=== PATIENT | female | born 1980 | race Caucasian/White ===

== ENCOUNTER 2018-09-27 16:41 | Emergency (ER) | payer OTHER ==
[~2018-09-27] VITALS: Ht 162.6 cm; Wt 102.5 kg
[~2018-09-27 16:41] MED LIST: BIRTH CONTROL; CIPROFLOXACIN500 M1 PO; FIORICET 50-321 EACH PO; FLOMAX0.4 MG PO; FLOXIN OTI0.3 %/5 M1 OT; MACROBID 100 M100 M1 PO; MUCINEX600 MG PO; NOHOMEMEDICATIONS; PAXIL10 MG; PERCOCET 5-3251 EACH PO; PRED FORTE 1% EY5 M1 OP; PYRIDIUM200 MG PO; ROBAXIN 750 MG750 MG PO; SPIRONOLACTONE25 M1 GT; TORADOL 10 MG T10 MG PO; TUSSIONEX PENN473 ML PO; ZOFRAN4 MG PO; ZPAK PO
[2018-09-27] MEDS ORDERED: LISINOPRIL10 MG PO (16:56)
[2018-09-27] MEDS ORDERED: ORTHO MICRONO0.35 MG PO (16:57)
[2018-09-27 17:28] LABS: ABSOLUTE EOSINOPHILS 0.2 thou/uL (0.0-0.7); ABSOLUTE LYMPHOCYTES 3.2 thou/uL (0.8-5.3); ABSOLUTE MONOCYTES 0.6 thou/uL (0.0-1.2); ABSOLUTE NEUTROPHILS 6.7 thou/uL (1.6-8.1); BASOPHILS 0.4 %; EOSINOPHILS 1.9 %; HEMATOCRIT 38.3 % (37.0-47.0); LYMPHOCYTES 29.5 %; MCH 29.8 pg (26.0-34.0); MCV 87.7 fL (80.0-100.0); MONOCYTES 5.6 %; MPV 8.5 fl. (7.2-11.1); NUCLEATED RBCS 0 /100WBC; PLATELET COUNT* 286 thou/uL (150-400); POLYS 62.6 %; RBC 4.36 mil/uL (4.20-5.00); RDW-CV 13.7 % (10.5-14.5); WBC 10.7 thou/uL (4.0-11.0)
[2018-09-27 17:29] LABS: URINE BILIRUBIN NEGATIVE (Negative); URINE BLOOD 2+ (Negative); URINE CLARITY CLEAR; URINE COLOR YELLOW; URINE GLUCOSE-RANDOM NEGATIVE (Negative); URINE KETONES TRACE (Negative); URINE LEUKOCYTES NEGATIVE (Negative); URINE NITRITE NEGATIVE (Negative); URINE PROTEIN NEGATIVE (Negative); URINE SPECIFIC GRAVITY >= 1.030 (1.005-1.030); URINE UROBILINOGEN 0.2 E.U./dl (0.2-1.0)
[2018-09-27 17:32] LABS: CALCIUM 8.7 mg/dL (8.5-10.1); CREATININE 0.9 mg/dL (0.6-1.3); POTASSIUM 3.6 mmol/L (3.5-5.1)
[2018-09-27 17:36] LABS: ALBUMIN 3.5 g/dL (3.4-5.0); TOTAL BILIRUBIN 0.5 mg/dL (<0.1-1.0); TOTAL PROTEIN 7.1 g/dL (6.4-8.2)
[2018-09-27 17:36] LABS: BACTERIA 1-9 Few /HPF (None Seen); CASTS None Seen /LPF (None Seen); CRYSTALS None Seen /LPF (None Seen); MUCUS None Seen strn/LPF (None Seen); SQUAMOUS 0-3 Few /LPF (0-3); URINE RBC 3-10 Few /HPF (0-2); URINE WBC 0-5 Rare /HPF (0-5)
[2018-09-27] MEDS ORDERED: ONDANSETRON HCL4 M2 PO (19:06)
[2018-09-27] MEDS ORDERED: FLOMAX0.4 MG PO (19:06)
[2018-09-27] MEDS ORDERED: NABUMETONE 750750 M1 PO (19:06)
[2018-09-27] MEDS ORDERED: PERCOCET PO (19:06)
[2018-09-27 19:34] VITALS: BP 149/96
== END 2018-09-27 19:35 | disposition home or self-care (01) ==
LOC: M.ERS 16:41
PROVIDERS: Nurse Practitioner Family
DX: N20.1 Calculus of ureter (principal); K58.9 Irritable bowel syndrome, unspecified; Z87.442 Personal history of urinary calculi; Z98.890 Other specified postprocedural states; Z88.1 Allergy status to other antibiotic agents; Z88.0 Allergy status to penicillin; Z88.5 Allergy status to narcotic agent

== ENCOUNTER 2019-08-15 21:01 | Emergency (ER) | payer OTHER ==
[~2019-08-15] VITALS: Ht 162.6 cm; Wt 99.8 kg
[~2019-08-15 21:01] MED LIST changes: +LISINOPRIL10 MG PO; +NABUMETONE 750750 M1 PO; +ONDANSETRON HCL4 M2 PO; +ORTHO MICRONO0.35 MG PO; +PERCOCET PO
[2019-08-15] MEDS ORDERED: NORVASC5 MG PO (21:20)
[2019-08-15] MEDS ORDERED: METFORMIN HCL500 MG PO (21:21)
[2019-08-15] MEDS ORDERED: POTASSIUM CITRATE (21:22)
[2019-08-15 21:43] LABS: ABSOLUTE BASOPHILS 0.2 thou/uL (0.0-0.2); ABSOLUTE EOSINOPHILS 0.2 thou/uL (0.0-0.7); ABSOLUTE LYMPHOCYTES 3.6 thou/uL (0.8-5.3); ABSOLUTE MONOCYTES 0.7 thou/uL (0.0-1.2); ABSOLUTE NEUTROPHILS 7.6 thou/uL (1.6-8.1); BASOPHILS 1.3 %; EOSINOPHILS 1.5 %; HEMATOCRIT 37.3 % (37.0-47.0); HEMOGLOBIN 12.7 gm/dL (12.0-15.0); LYMPHOCYTES 29.4 %; MCHC 34.2 g/dL (28.0-37.0); MCV 87.6 fL (80.0-100.0); MONOCYTES 5.8 %; NUCLEATED RBCS 0 /100WBC; PLATELET COUNT* 262 thou/uL (150-400); RBC 4.25 mil/uL (4.20-5.00); RDW-CV 13.6 % (10.5-14.5); WBC 12.3 thou/uL (4.0-11.0)
[2019-08-15 21:56] LABS: CALCIUM 8.9 mg/dL (8.5-10.1); CREATININE 0.9 mg/dL (0.6-1.3); POTASSIUM 3.9 mmol/L (3.5-5.1)
[2019-08-15 22:18] LABS: URINE BILIRUBIN NEGATIVE (Negative); URINE BLOOD 3+ (Negative); URINE CLARITY CLEAR; URINE COLOR YELLOW; URINE GLUCOSE-RANDOM NEGATIVE (Negative); URINE KETONES NEGATIVE (Negative); URINE LEUKOCYTES-REFLEX NEGATIVE (Negative); URINE NITRITE-REFLEX NEGATIVE (Negative); URINE PROTEIN TRACE (Negative); URINE UROBILINOGEN 0.2 E.U./dl (0.2-1.0)
[2019-08-15 22:27] LABS: SQUAMOUS >10 Many /LPF (0-3)
[2019-08-15 22:28] LABS: BACTERIA-REFLEX 1-9 Few /HPF (None Seen); CASTS None Seen /LPF (None Seen); CRYSTALS None Seen /LPF (None Seen); MUCUS None Seen strn/LPF (None Seen); URINE RBC >20 Many /HPF (0-2); URINE WBC-REFLEX 0-5 Rare /HPF (0-5)
[2019-08-16] MEDS ORDERED: ZOFRAN ODT4 MG PO (00:34)
[2019-08-16] MEDS ORDERED: NORCO 7.5-3251 EACH PO (00:34)
[2019-08-16 00:44] VITALS: BP 130/80
== END 2019-08-16 00:44 | disposition home or self-care (01) ==
LOC: M.ERS 21:01
PROVIDERS: Emergency Medicine
DX: N20.0 Calculus of kidney (principal); R11.2 Nausea with vomiting, unspecified; Z98.890 Other specified postprocedural states; Z90.710 Acquired absence of both cervix and uterus; Z88.1 Allergy status to other antibiotic agents; Z88.0 Allergy status to penicillin; Z88.5 Allergy status to narcotic agent

== ENCOUNTER 2019-08-16 19:12 | Inpatient (IN) | payer OTHER ==
[~2019-08-16] VITALS: Ht 162.6 cm; Wt 99.8 kg
[~2019-08-16 19:12] MED LIST changes: +METFORMIN HCL500 MG PO; +NORCO 7.5-3251 EACH PO; +NORVASC5 MG PO; +POTASSIUM CITRATE PO; +ZOFRAN ODT4 MG PO
[2019-08-16 19:41] VITALS: BP 127/78
[2019-08-16 20:02] LABS: ABSOLUTE BASOPHILS 0.1 thou/uL (0.0-0.2); ABSOLUTE EOSINOPHILS 0.1 thou/uL (0.0-0.7); ABSOLUTE LYMPHOCYTES 1.6 thou/uL (0.8-5.3); ABSOLUTE MONOCYTES 0.8 thou/uL (0.0-1.2); ABSOLUTE NEUTROPHILS 9.9 thou/uL (1.6-8.1); BASOPHILS 0.5 %; EOSINOPHILS 0.4 %; HEMATOCRIT 38.5 % (37.0-47.0); HEMOGLOBIN 13.2 gm/dL (12.0-15.0); LYMPHOCYTES 12.9 %; MCH 30.4 pg (26.0-34.0); MCHC 34.2 g/dL (28.0-37.0); MCV 88.8 fL (80.0-100.0); MONOCYTES 6.6 %; MPV 8.4 fl. (7.2-11.1); NUCLEATED RBCS 0 /100WBC; PLATELET COUNT* 261 thou/uL (150-400); POLYS 79.6 %; RBC 4.34 mil/uL (4.20-5.00); RDW-CV 13.9 % (10.5-14.5); WBC 12.4 thou/uL (4.0-11.0)
[2019-08-16 20:16] LABS: CALCIUM 9.1 mg/dL (8.5-10.1); CREATININE 1.3 mg/dL (0.6-1.3); POTASSIUM 4.3 mmol/L (3.5-5.1)
[2019-08-16 20:21] LABS: ALBUMIN 3.6 g/dL (3.4-5.0); TOTAL BILIRUBIN 0.9 mg/dL (<0.1-1.0)
[2019-08-16 22:41] LABS: URINE BILIRUBIN NEGATIVE (Negative); URINE BLOOD 3+ (Negative); URINE CLARITY HAZY; URINE COLOR YELLOW; URINE GLUCOSE-RANDOM NEGATIVE (Negative); URINE KETONES 1+ (Negative); URINE LEUKOCYTES-REFLEX NEGATIVE (Negative); URINE NITRITE-REFLEX NEGATIVE (Negative); URINE PROTEIN TRACE (Negative); URINE SPECIFIC GRAVITY 1.025 (1.005-1.030); URINE UROBILINOGEN 0.2 E.U./dl (0.2-1.0)
[2019-08-16 22:48] LABS: BACTERIA-REFLEX >30 Many /HPF (None Seen); CASTS None Seen /LPF (None Seen); CRYSTALS None Seen /LPF (None Seen); MUCUS 4-6 Moderate strn/LPF (None Seen); SQUAMOUS >10 Many /LPF (0-3); URINE RBC >20 Many /HPF (0-2); URINE WBC-REFLEX 6-15 Few /HPF (0-5)
[2019-08-17 00:56] VITALS: BP 128/74
[2019-08-17 01:20] VITALS: BP 139/74
--- NOTE | 2019-08-17 06:10 | NUR ---
PATIENT ADMITTED TO ROOM 108 FROM THE ER AT APPROXIMATELY 0105. WITH PATIENT IN ROOM. PATIENTS VSS ON RA. PATIENT ORIENTED TO ROOM AND POLICIES. FALL EDUCATION GIVEN AND FALL AGREEMENT SIGNED. PAIN CONTROLLED AT THIS TIME D/T PAIN MEDICATIONS BEING GIVEN IN THE ER. NO C/O NAUSEA AT THIS TIME. IV IN RIGHT AC- NS @ 100ML/HR. IV ABT GIVEN WITHOUT ANY ADVERSE SIDE EFFECTS. ASSESSMENT CHARTED. PATIENT INSTRUCTED TO USE CALL LIGHT WHEN NEEDING ASSISTANCE. HOURLY ROUNDS MADE. WILL CONTINUE WITH PLAN OF CARE AND NURSING TO MONITOR.
[2019-08-17 07:35] VITALS: BP 108/70
[2019-08-17 09:44] LABS: CALCIUM 8.2 mg/dL (8.5-10.1); CREATININE 1.4 mg/dL (0.6-1.3); POTASSIUM 3.6 mmol/L (3.5-5.1)
[2019-08-17 16:00] VITALS: BP 132/76
--- NOTE | 2019-08-17 19:00 | NUR ---
SEE MAR. PATIENT HAVING PAIN CONTROL ISSUES THIS SHIFT. DENIED PAIN THIS MORNING, THEN STATES AFTER FIRST VOID, STARTED HAVING INCREASE IN PAIN. URINE STRAINED ORDERED THRU SHIFT. NO SPECIMEN SENT TO LAB. PATIENT AMB IN AND HALLS W/ FAMILY MEMBER PRESENT. GAIT NOTED STEADY. PATIENT STATES THAT AMBULATING HELPS W/ PAIN. WARM PACK GIVEN, PATIENT STATES THAT IT HELPED A LITTLE THIS AM. UROLOGY CONSULTED. IV SITE NOTED WNL. FLUIDS INFUSING W/O DIFF. CURRENTLY AMBULATING IN HALLS W/ PRESENT. HRLY ROUNDS DONE. ~TJRN
[2019-08-17 19:40] VITALS: BP 132/75
--- NOTE | 2019-08-18 03:31 | NUR ---
ASSUMED CARE OF PATIENT AT 1930. FIRST CONTACT AT 1939. MOTHER, [id number] AND AT BEDSIDE. MOTHER AND [id number] ARE SPEAKING FOR PATIENT. VERY DIRECT QUESTIONS TO PATIENT USING HER NAME BEFORE FAMILY WOULD ALLOW HER TO ANSWER. FAMILY VERY UPSET TO SEE HER CONTINUED SEVERE PAIN DESPITE Q2H PAIN MEDS PROVIDED. AFTER BRIEF ASSESSMENT DISCUSSED GETTING IN TOUCH WITH THE PHYSICIAN. THIS WAS COMPLETED AFTER LEAVING ROOM. PHYSICIAN TO ENTER CHANGES IN MEDITECH. THIS NURSE COMING UP THE [place] TO ANOTHER PATIENT ROOM WHEN MET PATIENT IN [place] AMBULATING WITH MOTHER AND . MOTHER AGAIN VERBALIZING DISTRESS WITH NOT GETTING PAIN RELIEF. REITERATED THAT PHYSICIAN WAS CALLED AND NEW ORDERS PENDING. 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 ATTEMPTED TO STATE IT HADN'T BEEN TIME FOR PHYSICIAN TO COMPLETE ORDER PROCESS, BUT, THIS NURSE DIDN'T CARE IF PATIENT WANTED TO LEAVE AMA. MOTHER TOOK THIS STATEMENT THAT THIS NURSE DIDN'T CARE ABOUT THE PAIN PATIENT WAS GOING THROUGH AND STATED BACK TO THIS NURSE "I KNOW YOU DON'T CARE." MOTHER LEFT SHORTLY THEREAFTER. CONTINUED HOURLY PAIN ASSESSMENTS WITH MEDS PROVIDED ORDERED. A SECOND CALL TO PHYSICIAN 2041 TO ADD ANOTHER LEVEL OF PAIN MANGEMENT. PATIENT HAS BEEN COOPERATIVE AND PAIN LEVELS BECOMING MORE TOLERABLE UTILIZING ORAL PERCOCET, LEVSIN, IV FENTANYL AND A B&O SUPPOSITORY. O2 SATS MID NINTIES. CONTINUE TO MONITOR.
[2019-08-18 03:54] LABS: HEMATOCRIT 31.7 % (37.0-47.0); MCH 30.5 pg (26.0-34.0); MCHC 34.2 g/dL (28.0-37.0); MCV 89.2 fL (80.0-100.0); MPV 8.9 fl. (7.2-11.1); RBC 3.56 mil/uL (4.20-5.00); WBC 12.1 thou/uL (4.0-11.0)
[2019-08-18 03:55] LABS: HEMOGLOBIN 10.8 gm/dL (12.0-15.0)
[2019-08-18 04:29] LABS: CALCIUM 8.6 mg/dL (8.5-10.1); CREATININE 1.3 mg/dL (0.6-1.3); POTASSIUM 4.3 mmol/L (3.5-5.1)
--- NOTE | 2019-08-18 05:23 | NUR ---
PATIENT HAS REMAINED ALERT AND ORIENTED X 4 THROUGHOUT. UP FREQUENTLY TO AMBULATE IN THE [place] WHEN PAIN HITS. VERY DIFFICULT PAIN MANAGEMENT. SEE PREVIOUS NURSING ENTRY. OVERALL SOME IMPROVEMENT SINCE PAST MIDNIGHT AND PATIENT DID GET A LITTLE BIT OF SLEEP. VITAL SIGNS STABLE ON ROOM AIR. NPO FOR POSSIBLE PROCEDURE. CONTINUE TO MONITOR.
[2019-08-18 07:50] VITALS: BP 110/63
[2019-08-18 10:59] LABS: URINE BILIRUBIN NEGATIVE (Negative); URINE BLOOD 2+ (Negative); URINE CLARITY CLEAR; URINE COLOR YELLOW; URINE GLUCOSE-RANDOM NEGATIVE (Negative); URINE KETONES NEGATIVE (Negative); URINE LEUKOCYTES NEGATIVE (Negative); URINE NITRITE NEGATIVE (Negative); URINE PROTEIN NEGATIVE (Negative); URINE SPECIFIC GRAVITY <= 1.005 (1.005-1.030); URINE UROBILINOGEN 0.2 E.U./dl (0.2-1.0)
[2019-08-18 11:08] LABS: SQUAMOUS >10 Many /LPF (0-3)
[2019-08-18 11:09] LABS: URINE RBC 3-10 Few /HPF (0-2); URINE WBC 0-5 Rare /HPF (0-5)
[2019-08-18 11:10] LABS: BACTERIA 1-9 Few /HPF (None Seen); CASTS None Seen /LPF (None Seen); MUCUS None Seen strn/LPF (None Seen)
[2019-08-18 11:11] LABS: CRYSTALS None Seen /LPF (None Seen)
[2019-08-18] MEDS ORDERED: CEFUROXIME250 MG PO (13:06)
[2019-08-18 13:34] VITALS: BP 110/63
[2019-08-18 13:38] VITALS: BP 110/63
[2019-08-18] MEDS ORDERED: LEVSIN0.125 MG PO (13:55)
[2019-08-18] MEDS ORDERED: FLOMAX0.4 MG PO (13:55)
[2019-08-18] MEDS ORDERED: PHENAZOPYRIDIN200 M2 PO (13:57)
[2019-08-18] MEDS ORDERED: COLACE100 MG PO (13:57)
[2019-08-18 14:17] VITALS: BP 110/63
--- NOTE | 2019-08-18 14:17 | NUR ---
PT IV REMOVED. PT GIVEN PRESCRIPTIONS, CARE NOTES, AND DISCHARGE INFORMATION. PT BELONGINGS GATHERED. PT LEFT VIA WHEELCHAIR WITH NURSING STAFF TO HOME. FALL RISK PRECAUTIONS IN PLACE. HOURLY ROUNDING COMPLETED. WILL CONTINUE TO MONITOR.
--- NOTE | 2019-08-18 14:40 | CON ---
[address] [address] CONSULTATION Name: CORTEZ IBARRA Room: [address] IN M.R.#: [id number] Admission: 08/16/19 Attend Phys: Kinjal Dobbs MD Discharge: 08/18/19 Date of : 84 Report #: [id number] THIS REPORT FOR: //name// CC: Eliska. Khoi Dobbs DATE OF SERVICE: 08/17/2019 REFERRING PHYSICIAN: Dr. Hays. REASON FOR CONSULTATION: Left ureteral calculus, flank pain, vomiting. HISTORY OF PRESENT ILLNESS: This is a 38-year-old female who follows in our office for kidney stones. She reports multiple episodes of kidney stones, but states she has not required intervention for any of these. She reports history of left-sided flank pain, nausea and vomiting. She was seen in the Emergency Department 2 days ago regarding this and treated as an outpatient. However, she developed intractable nausea and vomiting and came back to the Emergency Department. She was admitted for control of her pain and nausea, IV fluids. Urology was consulted regarding her left ureteral calculus. She denies fever, chills, dysuria or difficulty voiding. Reports one episode of blood-tinged urine. No clots or fragments. She has been straining her urine. She denies any other recent illness. PAST MEDICAL HISTORY: Significant for kidney stones and migraines. ALLERGIES: CIPRO WHICH GAVE HER REDNESS AT THE INJECTION SITE, HYDROCODONE (NAUSEA AND VOMITING), MORPHINE AND PENICILLINS. FAMILY HISTORY: She denies any blood relatives with kidney stones or kidney problems. SOCIAL HISTORY: She denies use of tobacco. Drinks alcohol occasionally. PAST SURGICAL HISTORY: Includes , hysterectomy, and Lasix. REVIEW OF SYSTEMS: As per the history of present illness. No chest pain, shortness of breath or palpitations. No cough. PHYSICAL EXAMINATION: VITAL SIGNS: Temperature 36.9, pulse 68, respirations 15, blood pressure 139/74. GENERAL: This is a 38-year-old female in no acute distress. She is awake, alert and oriented. Answers questions appropriately. HEENT: Normocephalic, atraumatic. NECK: Supple. No JVD. Range of [place] [address] CONSULTATION Name: CORTEZ IBARRA Room: [address]#: [id number] Admission: 08/16/19 Attend Phys: Kinjal Dobbs MD Discharge: 08/18/19 Date of : 84 Report #: [id number] RESPIRATORY: Respiratory effort and excursion are normal. Extraocular movements are intact. Oropharynx is clear. CARDIAC: Rhythm is regular. Radial pulses are palpable. EXTREMITIES: Warm. No peripheral edema. He moves all extremities well. ABDOMEN: Soft and nondistended. She has mild suprapubic tenderness with nonpalpable bladder. No guarding or rebound. Mild left flank tenderness. Right flank and spine are nontender. GENITOURINARY: Deferred. LABORATORY DATA: Include sodium 140, potassium 3.6, chloride 108, CO2 of 24, BUN 8, creatinine 1.4, glucose 130. Hemoglobin 13.2, white count 12.4, platelet count 261,000. Urinalysis revealed greater than 20 red cells, 6-15 white cells and many epithelial cells as well as bacteria. Culture on that is pending. She has been started on Rocephin empirically. Noncontrast CT scan of the abdomen and pelvis revealed left hydronephrosis and hydroureter with a 2 mm stone in the left distal ureter. No other stones seen. That study was performed almost 2 days ago. IMPRESSION: Left distal ureteral calculus with flank pain, nausea and vomiting. Options for management discussed at length with the patient including medical expulsive therapy, outpatient ESWL, inpatient versus outpatient cystoscopy/retrograde pyelogram/ureteroscopy with stone manipulation, possible laser lithotripsy, possible stent. Risks and benefits of these approaches were discussed. The ureteroscopy procedure and its risks and benefits were discussed in detail. PLAN: We will plan IV hydration and medical expulsive therapy with Flomax. Await urine culture results. Avoid nephrotoxins such as Toradol. She has had fairly recent p.o. intake. We will make orders for n.p.o. after midnight in case stone intervention is necessary tomorrow. We will check a KUB and followup lab as well. <ELECTRONICALLY SIGNED> By: Tay Khalil MD 08/18/19 [id number] [id number] 26Tay Khalil MD /nt
== END 2019-08-18 14:27 | disposition home or self-care (01) | DRG 690 ==
LOC: M.ERS 19:12 → M.ORTHSURG 22:53 → M.TBA-ER 22:53 → M.ORTHSURG 08-17 01:04
PROVIDERS: Emergency Medicine; Internal Medicine; Nurse Practitioner Adult Health; ADMIT Internal Medicine
DX: N13.6 Pyonephrosis (principal); N17.0 Acute kidney failure with tubular necrosis; N28.89 Other specified disorders of kidney and ureter; G43.909 Migraine, unspecified, not intractable, without status migrainosus; E86.9 Volume depletion, unspecified; K58.9 Irritable bowel syndrome, unspecified; T40.2X5A Adverse effect of other opioids, initial encounter; E66.9 Obesity, unspecified; Z68.37 Body mass index [BMI] 37.0-37.9, adult; Z87.442 Personal history of urinary calculi; Z90.710 Acquired absence of both cervix and uterus; Z88.6 Allergy status to analgesic agent; Z88.1 Allergy status to other antibiotic agents; Z88.0 Allergy status to penicillin; Y92.89 Other specified places as the place of occurrence of the external cause